=== PATIENT | female | born 1970 | race African-American/Black ===

== ENCOUNTER 2017-06-18 08:06 | Observation (INO) | payer MEDICAID, OTHER ==
[~2017-06-18] VITALS: Ht 170.2 cm; Wt 153.4 kg
[2017-06-18 08:45] LABS: BASOPHILS % 0.3 % (0.0-2.0); EOSINOPHILS % 3.7 % (0.0-5.0); HEMATOCRIT. 35.7 % (36.0-48.0); HEMOGLOBIN. 12.3 g/dL (12.0-16.0); LYMPHOCYTES % 35.1 % (20.0-50.0); MEAN CORPUSCULAR HEMOGLOBIN 29.9 pg (28.0-32.0); MEAN CORPUSCULAR VOLUME 86.5 fL (81.0-99.0); MEAN PLATELET VOLUME 9.1 fl (7.4-10.4); MONOCYTES % 7.6 % (2.0-8.0); NEUTROPHILS % 53.3 % (40.0-76.0); PLATELET 275 x1000/uL (130-400); RED BLOOD CELL COUNT 4.13 mill/uL (4.2-5.4); RED CELL DISTRIBUTION WIDTH 13.9 % (11.6-14.6)
[2017-06-18 08:55] LABS: INR 1.1; PARTIAL THROMBOPLASTIN TIME 28.4 sec (23.4-31.0); PROTHROMBIN TIME 11.1 sec (9.4-11.6)
[2017-06-18 09:05] LABS: CARBON DIOXIDE 28 mEq/L (21-32); CHLORIDE 99 mEq/L (98-107); TROPONIN I < 0.02 ng/mL (0.00-0.04)
[2017-06-18] MEDS ORDERED: ONDANSETRON HCL 4MG/2ML VIAL IV STA (09:12)
[2017-06-18] MEDS ORDERED: MORPHINE SULFATE 4 MG/ML CPJ (NOT FOR IM USE) IV STA (09:12)
[2017-06-18] MEDS ORDERED: NITROGLYCERIN OINT 1GM/INCH UDPKT TD STA (09:12)
[2017-06-18] MEDS ORDERED: ASPIRIN 81MG TABLET PO STA (09:12)
[2017-06-18] MEDS ORDERED: NITROGLYCERIN 0.4MG TABLET SL SL PRN (09:15)
[2017-06-18 09:26] LABS: HCG SCREEN NEGATIVE
[2017-06-18] MEDS ORDERED: POTASSIUM CHLORIDE 20MEQ TABLET SR PO ONE (09:45)
[2017-06-18 16:53] VITALS: BP 140/57
[2017-06-18 17:17] VITALS: BP 140/59
[2017-06-18] MEDS ORDERED: ACETAMINOPHEN 325MG TABLET PO PRN (17:30)
[2017-06-18] MEDS ORDERED: DIPHENHYDRAMINE 50MG/ML VIAL IV PRN (17:30)
[2017-06-18] MEDS ORDERED: IPRATROPIUM/ALBUTEROL 0.5-3(2.5)MG/3ML NEB INH PRN (17:30)
[2017-06-18] MEDS ORDERED: MAGNESIUM/ALUMINUM HYDROXIDE/SIMETHICONE 30ML UDC PO PRN (17:30)
[2017-06-18] MEDS ORDERED: GUAIFENESIN 200MG/10ML SUGAR FREE UDC PO PRN (17:30)
[2017-06-18] MEDS ORDERED: ONDANSETRON HCL 4MG/2ML VIAL IV PRN (17:30)
[2017-06-18] MEDS ORDERED: CLONIDINE 0.1MG TABLET PO PRN (17:30)
[2017-06-18] MEDS ORDERED: MORPHINE SULFATE 4 MG/ML CPJ (NOT FOR IM USE) IV PRN (17:30)
[2017-06-18] MEDS ORDERED: ZOLPIDEM TARTRATE 5MG TABLET PO PRN (17:30)
[2017-06-18] MEDS ORDERED: DEXTROSE 50% WATER 50ML SYRINGE IV PRN (17:30)
[2017-06-18] MEDS ORDERED: MAGNESIUM 2 G PREMIX 50 ML IV PRN (17:45)
[2017-06-18] MEDS ORDERED: POTASSIUM CHLORIDE 20MEQ TABLET SR PO NR (18:00)
[2017-06-18 19:26] VITALS: BP 104/66
[2017-06-18] MEDS ORDERED: MORPHINE SULFATE 10 MG/ML CPJ IV PRN (19:32)
[2017-06-18] MEDS ORDERED: INSULIN LISPRO 100 UNITS/ML SUBCUT SCH (21:00)
[2017-06-18] MEDS ORDERED: PNEUMOCOCCAL 23-VAL P-SAC VAC 0.5 ML IM ONE (21:00)
[2017-06-18] MEDS ORDERED: BLOOD SUGAR DIAGNOSTIC STRIP TEST SCH (21:00)
[2017-06-18] MEDS ORDERED: INFLUENZA VIRUS VACCINE 0.5ML SYR IM ONE (21:00)
[2017-06-18] MEDS ORDERED: SODIUM CHLORIDE 0.9% INJ 3ML FLUSH IVF SCH (22:00)
[2017-06-18] MEDS ORDERED: NITROGLYCERIN OINT 1GM/INCH UDPKT TD SCH (22:00)
[2017-06-18] MEDS ORDERED: LORAZEPAM 2MG/ML CPJ IV ONE (22:45)
[2017-06-18] MEDS ORDERED: LORAZEPAM 1MG TABLET PO SCH (22:45)
[2017-06-18 23:03] VITALS: BP 148/75
[2017-06-19 01:53] VITALS: BP 122/64
[2017-06-19 02:00] VITALS: BP 122/64
[2017-06-19 04:20] VITALS: BP 139/74
[2017-06-19] MEDS ORDERED: ASPIRIN 81MG EC TABLET PO SCH (09:00)
== END 2017-06-19 04:50 | disposition short-term general hospital (02) ==
LOC: ER 08:23 → INTOOBSV 09:38 → 5WST 09:38 → ENRESERV 14:16 → CANBEDREQ 16:15
PROVIDERS: ADMIT Internal Medicine; ATTEND Internal Medicine
DX: R07.89 Other chest pain (principal); I11.0 Hypertensive heart disease with heart failure; I50.9 Heart failure, unspecified; J45.909 Unspecified asthma, uncomplicated; E87.6 Hypokalemia; E11.65 Type 2 diabetes mellitus with hyperglycemia; Z23 Encounter for immunization
CPT/HCPCS: 36415; 71010; 80053; 82962; 83036; 83690; 83735; 83880; 84443; 84484; 84703; 85025; 85610; 85730; 90471; 90472; 93005; 96374; 96375; 99291; G0378; J2270; J2405; 90686; 90732

== ENCOUNTER 2018-01-14 19:57 | Emergency (ER) | payer OTHER ==
[~2018-01-14] VITALS: Ht 170.2 cm; Wt 100.0 kg
[2018-01-14 21:20] LABS: CHLORIDE 107 mEq/L (98-107)
[2018-01-14 21:24] LABS: PARTIAL THROMBOPLASTIN TIME 27.4 sec (23.4-31.0); PROTHROMBIN TIME 10.7 sec (9.4-11.6)
[2018-01-14 21:28] LABS: BASOPHILS % 0.4 % (0.0-2.0); EOSINOPHILS % 0.9 % (0.0-5.0); HEMATOCRIT. 34.2 % (36.0-48.0); HEMOGLOBIN. 11.5 g/dL (12.0-16.0); LYMPHOCYTES % 34.1 % (20.0-50.0); MEAN CORPUSCULAR HEMOGLOBIN 28.4 pg (28.0-32.0); MEAN CORPUSCULAR VOLUME 84.9 fL (81.0-99.0); MEAN PLATELET VOLUME 9.3 fl (7.4-10.4); MONOCYTES % 5.9 % (2.0-8.0); NEUTROPHILS % 58.7 % (40.0-76.0); PLATELET 284 x1000/uL (130-400); RED BLOOD CELL COUNT 4.03 mill/uL (4.2-5.4); RED CELL DISTRIBUTION WIDTH 14.6 % (11.6-14.6)
[2018-01-14 21:33] LABS: HCG SCREEN NEGATIVE
[2018-01-14] MEDS ORDERED: LORAZEPAM 0.5MG TABLET PO ONE (23:30)
[2018-01-15 02:00] VITALS: BP 155/72
== END 2018-01-15 02:29 | disposition home or self-care (01) ==
LOC: ER 19:57
DX: F41.1 Generalized anxiety disorder (principal); R00.2 Palpitations; R06.00 Dyspnea, unspecified; I11.0 Hypertensive heart disease with heart failure; I50.9 Heart failure, unspecified; E66.9 Obesity, unspecified; J45.909 Unspecified asthma, uncomplicated; Z88.6 Allergy status to analgesic agent; Z88.8 Allergy status to other drugs, medicaments and biological substances
CPT/HCPCS: 36415; 71045; 80053; 83690; 83880; 84443; 84484; 84703; 85025; 85610; 85730; 93005; 99285; Z7610